=== PATIENT | female | born 1950 | race Native Hawaiian/Other Pacific Islander ===

== ENCOUNTER 2020-04-21 10:14 | Emergency (ER) | payer MEDICARE, OTHER, SELFPAY ==
[2020-04-21] VITALS (15 sets, daily range): BP systolic 146–179; BP diastolic 72–83; PULSE 59–72; RESP 13–37; TEMP 36.7; O2SAT 98–100
--- NOTE | 2020-04-21 10:49 | DI.CT.S_ITS ---
PROCEDURE: CT HEAD/BRAIN WO CON INDICATIONS: dizzy, ataxia x 4 days, no h/o trauma TECHNIQUE: Noncontrast 4.5 mm thick angled axial sections acquired from the foramen magnum to the vertex, with coronal and sagittal reformats. For radiation dose reduction, the following was used: automated exposure control, adjustment of mA and/or kV according to patient size. COMPARISON: None. FINDINGS: Image quality: Excellent. CSF spaces: Basal cisterns are patent. No extra-axial fluid collections. The ventricles are symmetric in size and shape. Brain: No intracranial bleeds or masses. There is mild cerebral volume loss for age, with resultant ventricular and sulcal prominence. There are moderate periventricular and deep white matter chronic small vessel ischemic changes. There is intracranial internal carotid artery atherosclerosis. Skull and face: Calvarium and visualized facial bones appear intact, without suspicious lesions. Sinuses: Visualized sinuses and mastoids are clear. IMPRESSION: 1. No acute intracranial abnormalities. 2. Mild cerebral volume loss and moderate chronic microvascular ischemic changes. 3. Please consider MRI for follow-up if clinical suspicion for posterior stroke is high. Dictated by: Bree Mcgee M.D. on 04/21/2020 at 11:09 Approved by: Bree Mcgee M.D. on 04/21/2020 at 11:16
[2020-04-21 11:44] LABS: Add Manual Diff / Slide Review NO; Basophils Absolute Auto 0 /uL (0-100); Basophils Percent Auto 0.7 % (0-2); Eosinophils Absolute Auto 100 /uL (0-450); Eosinophils Percent Auto 2.3 % (2-4); Hematocrit 45.3 % (36-46); Hemoglobin 15.1 g/dL (12.0-16.0); Lymphocytes Absolute Auto 1400 /uL (1100-4500); Lymphocytes Percent Auto 27.3 % (25-40); Mean Corpuscular HGB Conc 33.4 % (30-36); Mean Corpuscular Hemoglobin 30.4 PG (26-34); Monocytes Absolute Auto 500 /uL (0-900); Monocytes Percent Auto 8.8 % (3-14); Neutrophils Absolute Auto 3200 /uL (1500-7000); Neutrophils Percent Auto 60.9 % (50-75); Platelet Count 140 X10^3/uL (150-400); Red Blood Cell Count 4.98 X10^6/uL (4.0-5.2); Red Cell Distribution Width 13.6 % (11.6-14.8); White Blood Cell Count 5.2 X10^3/uL (4.5-11.0)
[2020-04-21 11:44] LABS: Bacteria Urine None Seen; RBC Urine None Seen (0-5/HPF); WBC Urine None Seen (0-5/HPF)
[2020-04-21 11:48] LABS: Appearance Urine UA CLEAR; Bilirubin Urine UA NEGATIVE (NEGATIVE); Glucose Urine UA 1+ g/dL (Negative); Ketones Urine UA NEGATIVE (NEGATIVE); Leukocyte Esterase Urine UA NEGATIVE (NEGATIVE); Nitrite Urine UA NEGATIVE (Negative); Occult Blood Urine UA NEGATIVE (Negative); Protein Urine UA NEGATIVE (Negative); Specific Gravity Urine UA <=1.005 (1.000-1.035); Urobilinogen Urine UA 0.2 E.U./dL (0.2)
[2020-04-21] MEDS: SODIUM CHLORIDE 0.9% 1,000 ML 1000 ML IV (11:49)
[2020-04-21 11:50] LABS: INR 0.9 (0.9-1.3); Prothrombin Time 10.7 SECONDS (10.1-12.7)
[2020-04-21 11:52] LABS: UR Morphine/Opiate cutoff 300 Negative (Negative); Ur Creatinine Normal (Normal); Ur Specific Gravity Normal (Normal); Urine Amphetamines Negative (Negative); Urine Barbiturates Negative (Negative); Urine Benzodiazepines Negative (Negative); Urine Cocaine Negative (Negative); Urine MDMA Negative (Negative); Urine Methadone Negative (Negative); Urine Methamphetamines Negative (Negative); Urine Oxycodone Negative (Negative); Urine Phencyclidine Negative (Negative); Urine Tetrahydrocannabinol Negative (Negative); Urine Tricyclic Antidepressant Negative (Negative); Urine pH Normal (Normal)
[2020-04-21 11:53] LABS: PTT Partial Thromboplastin Tim 28 SECONDS (26.4-36.2)
[2020-04-21 12:00] LABS: Alanine Aminotransferase 15 IU/L (<35); Albumin 4.3 g/dL (3.5-5.0); Albumin Globulin Ratio 1.3 (1.0-2.8); Alkaline Phosphatase 70 U/L (38-126); Aspartate Aminotransferase 29 IU/L (14-36); BUN Creatinine Ratio 29.8 (6-22); Bilirubin Total 0.4 mg/dL (0.2-1.3); Blood Urea Nitrogen 17 mg/dL (7-17); Calcium 9.6 mg/dL (8.4-10.2); Carbon Dioxide 28 mmol/L (22-32); Chloride 102 mmol/L (98-107); Creatine Kinase 43 U/L (30-135); Estimated Glomerular Filt Rate > 60.0 mL/min (>60); Globulin 3.2 g/dL (1.7-4.1); Glucose 281 mg/dL (80-110); HEMOLYSIS 18 (0-50); Potassium 4.3 mmol/L (3.4-5.1); Sodium 135 mmol/L (137-145); Total Protein 7.5 g/dL (6.3-8.2)
[2020-04-21 12:11] LABS: Troponin I < 0.012 ng/mL (0.01-0.034)
[2020-04-21 12:11] LABS: Color Urine UA Straw; pH Urine UA 6.5 (4.5-8.0)
[2020-04-21 12:20] LABS: Culture Indicated Urine Cult Not Indicated; Squamous Epithelial Cell Urine 0-1 /HPF (0-5/HPF); Urine Comments Microscopic Normal
[2020-04-21] MEDS: SODIUM CHLORIDE 0.9% 1,000 ML 150 ML IV (13:27)
[2020-04-21] MEDS: MECLIZINE HCL 12.5 MG TABLET 25 MG PO (13:30)
[2020-04-21] MEDS: ACETAMINOPHEN 325 MG TABLET 650 MG PO (13:56)
[2020-04-21] MEDS: methocarbamoL 500 MG TABLET PO (14:03)
--- NOTE | 2020-04-21 18:01 | ED_ITS ---
HPI - Dizziness <SARAY Hull - Last Filed: 04/21/20 18:21> General Chief Complaint: Dizziness Stated Complaint: vertigo/slight visual changes x4days Time Seen by Provider: 04/21/20 12:57 Source: patient and family Mode of arrival: Ambulatory Limitations: no limitations History of Present Illness HPI Narrative: This is a 70-year-old female, nonsmoker, who has past medical history significant for diabetes who is not currently taking medication and treating with diet presents to ED with chief complain of spining like sensation which increases with movement for last 4 days. Initial dizziness started when she woke up and turned her head to look up a clock 4 days ago. She states dizziness gets better after a few seconds after she stops moving her head. She denies chest pain, dyspnea, facial droops, aphasia, aphasia, paralysis, tingling or numbness to upper extremities as associated symptoms. Patient feels better when she is sitting up and she denies history of vertigo. Patient denies fever, chills, nausea and vomiting and has been normal state of health and denies r ecent URI symptoms or ear pain. Reports feeling dehydrated even though she drinks about 4 bottles of small water bottle per day. Patient also reports stiff neck and mild headache and slight blurred vision when she looks at her computer monitor and up which lasts for few seconds. Patient states she stop taking metformin in 08/2017 after taking this for many years. She has an appointment with her primary care physician at [facility] tomorrow. Related Data Previous Rx's Medication Instructions Recorded meclizine 25 mg PO BID PRN #10 tab 04/21/20 methocarbamol 500 mg PO Q8H PRN #7 tab 04/21/20 Allergies Allergy/AdvReac Type Severity Reaction Status Date / Time No Known Drug Allergies Allergy Verified 04/21/20 10:44 Review of Systems <SARAY Hull - Last Filed: 04/21/20 18:21> Review of Systems Narrative: General: Denies fever, chills, fatigue, malaise, sweats. HEENT: See HP a Respiratory: Denies dyspnea, cough, wheezing, hemoptysis, sputum. Cardiovascular: Denies chest pain, palpitations, orthopnea, edema. Gastrointestinal: Denies nausea, vomiting, abdominal pain, diarrhea, constipation, melena. : Denies dysuria, frequency, incontinence, hematuria, urinary retention. Musculoskeletal: Denies weakness, joint pain or bony pain. Skin: Denies rash, skin lesions, or other. Neurologic: HPI Psychiatric: No concerning psychosocial issues. 12-point review of systems is negative except for those stated above. Patient History <SARAY Hull - Last Filed: 04/21/20 18:21> Medical History (Updated 04/21/20 @ 18:08 by SARAY Hull) Diabetes mellitus Social History Smoking Status: Never smoker Smoking Status: Never smoker alcohol intake frequency: 0-2 drinks per day Substance Use Type: does not use Exam <SARAY Hull - Last Filed: 04/21/20 18:21> Narrative Exam Narrative: GEN: Alert, oriented x 3, thin appearing and in no acute distress. Head: Normal cephalic, atraumatic. No scalp or temporal tenderness, palpable mass or rash. EYES: Pupils are equal, round, and reactive to light and accommodation. Extraocular muscles are intact bilaterally. There is no subconjunctival hemorrhage, exudate and sclera non-icteric. No vertical nystagmus appreciated. ENT: Bilateral auditory canals and tympanic membranes clear. Hearing grossly intact. Nose without bleeding, purulent discharge, septal hematoma or deviation. Turbinate without erythema or swelling. Facial sinuses nontender to palpate. Mucous membrane moist, no mucosal lesion. Throat without erythema, tonsillar hypertrophy or exudate. Uvula in midline, airway patent. Neck: Trachea in midline. No JVD, non-tender without lymphadenopathy. No masses or thyroid megaly. Supple and no meningeal signs. Mild tenderness to palpate in bilateral neck. CARDIAC: Normal regular rate and rhythm without murmurs, gallops, or rubs. No chest wall tenderness. No peripheral edema, cyanosis or pallor. Capillary refill is less than 2 seconds. No carotid bruits. RESPIRATORY: Lungs are cleat to auscultate bilaterally. No cough, wheezes, rales, or rhonchi. No stridor, respiratory distress, increase work of breathing, or accessary muscle used. ABD: Abdomen soft, nontender and non-distended. No guarding or rebound tenderness to palpate. Bowel sounds are normal in all 4 quadrants. There is no palpable masses or organomegaly. EXT: Full painless ROM of all extremities with no loss of sensation, strength, effusion or edema. SKIN: Warm, dry, normal color for patient. No erythema, lesions or rash. BACK: Nontender without deformity or crepitance. No flank tenderness. NEUROLOGICAL: Alert and oriented to place, time and person. No facial droops, dysphasia. CN II-XII intact. Strength and sensation symmetric and intact throughout. Cerebellar testing normal. PSYCHIATRIC: Good judgement and reason, without hallucinations, abnormal affect or abnormal behaviors during the examination. Patient is not suicidal. Initial Vital Signs Initial Vital Signs: Vital Signs Temperature 98.1 F 04/21/20 10:41 Pulse Rate 72 04/21/20 10:41 Respiratory Rate 16 04/21/20 10:41 Blood Pressure 158/82 H 04/21/20 10:41 Pulse Oximetry 98 04/21/20 10:41 <Carole Shine DO - Last Filed: 04/22/20 10:30> Initial Vital Signs Initial Vital Signs: Vital Signs Temperature 98.1 F 04/21/20 10:41 Pulse Rate 72 04/21/20 10:41 Respiratory Rate 16 04/21/20 10:41 Blood Pressure 158/82 H 04/21/20 10:41 Pulse Oximetry 98 04/21/20 10:41 Scores <SARAY Hull - Last Filed: 04/21/20 18:21> GCS Sam coma scale eye opening: Spontaneous [place] coma scale verbal response: Orientated Sam coma scale motor response: Obey commands [place] coma scale total score: 15 NIH Stroke Scale Level of Conciousness: Alert, keenly responsive Ask month/age: Answers both questions correctly. Open/close eyes, close hand: Performs both tasks correctly Best gaze horizontal: Normal Visual osuna: No visual loss Facial palsy: Normal symetrical movement Left arm drift: No drift for full 10 sec Right arm drift: No drift for full 10 sec Left leg drift: No drift for full 5 sec Right leg drift: No drift for full 5 sec Limb ataxia: Absent Sensory on face/arms/legs: Normal, no sensory loss Best language: No aphasia, normal Dysarthria: Normal Extinction or inattention: No abnormality Total NIH Stroke scale score: 0 Course <SARAY Hull - Last Filed: 04/21/20 18:21> Orders Ordered: Discontinued Medications Acetaminophen (Acetaminophen 325 Mg Tablet) 650 mg PO NOW ONE Stop: 04/21/20 13:50 Last Admin: 04/21/20 13:56 Dose: 650 mg Documented by: RONAL Sodium Chloride (Normal Saline 0.9%) 1,000 mls @ 150 mls/hr IV CONT JUAN Last Admin: 04/21/20 13:27 Dose: 150 mls/hr Documented by: RONAL Sodium Chloride (Normal Saline 0.9%) 1,000 mls @ 1,000 mls/hr IV BOLUS ONE Stop: 04/21/20 11:51 Last Infusion: 04/21/20 13:10 Dose: 0 mls/hr Documented by: Admin: 04/21/20 11:49 Dose: 1,000 mls/hr Documented by: RONAL Sodium Chloride (Normal Saline 0.9%) 500 mls @ 1,000 mls/hr IV BOLUS ONE Stop: 04/21/20 13:57 Last Admin: 04/21/20 14:05 Dose: Not Given Documented by: RONAL Meclizine HCl (Meclizine Hcl 12.5 Mg Tablet) 25 mg PO NOW ONE Stop: 04/21/20 13:25 Last Admin: 04/21/20 13:30 Dose: 25 mg Documented by: RONAL Methocarbamol (Methocarbamol 500 Mg Tablet) 500 mg PO NOW ONE Stop: 04/21/20 13:50 Last Admin: 04/21/20 14:03 Dose: 500 mg Documented by: RONAL Vital Signs Vital signs: Vital Signs - 8 hr 04/21/20 10:41 04/21/20 10:53 04/21/20 11:00 Temperature 98.1 F Pulse Rate 72 68 71 Pulse Rate [Orthostatic Lying] Pulse Rate [Orthostatic Sitting] Pulse Rate [Orthostatic Standing] Respiratory Rate 16 37 H 29 H Blood Pressure 158/82 H 159/81 H Blood Pressure [Orthostatic Lying] Blood Pressure [Orthostatic Sitting] Blood Pressure [Orthostatic Standing] Pulse Oximetry 98 98 99 04/21/20 11:48 04/21/20 12:00 04/21/20 12:27 Temperature Pulse Rate 64 63 62 Pulse Rate [Orthostatic Lying] Pulse Rate [Orthostatic Sitting] Pulse Rate [Orthostatic Standing] Respiratory Rate 15 21 Blood Pressure 148/75 H 146/72 H 161/78 H Blood Pressure [Orthostatic Lying] Blood Pressure [Orthostatic Sitting] Blood Pressure [Orthostatic Standing] Pulse Oximetry 99 100 100 04/21/20 12:30 04/21/20 12:37 04/21/20 12:40 Temperature Pulse Rate 61 61 62 Pulse Rate [Orthostatic Lying] Pulse Rate [Orthostatic Sitting] Pulse Rate [Orthostatic Standing] Respiratory Rate 17 19 21 Blood Pressure 161/80 H 155/76 H 164/77 H Blood Pressure [Orthostatic Lying] Blood Pressure [Orthostatic Sitting] Blood Pressure [Orthostatic Standing] Pulse Oximetry 100 100 100 04/21/20 12:42 04/21/20 13:00 04/21/20 13:33 Temperature Pulse Rate 62 Pulse Rate [Orthostatic Lying] 61 Pulse Rate [Orthostatic Sitting] 59 L Pulse Rate [Orthostatic Standing] 60 Respiratory Rate 16 Blood Pressure 176/81 H Blood Pressure [Orthostatic Lying] 161/80 H Blood Pressure [Orthostatic Sitting] 155/76 H Blood Pressure [Orthostatic Standing] 164/77 H Pulse Oximetry 99 99 04/21/20 13:35 04/21/20 14:00 04/21/20 14:30 Temperature Pulse Rate 69 68 63 Pulse Rate [Orthostatic Lying] Pulse Rate [Orthostatic Sitting] Pulse Rate [Orthostatic Standing] Respiratory Rate 13 18 18 Blood Pressure 179/83 H 164/77 H 166/79 H Blood Pressure [Orthostatic Lying] Blood Pressure [Orthostatic Sitting] Blood Pressure [Orthostatic Standing] Pulse Oximetry 100 98 98 <Carole Shine, - Last Filed: 04/22/20 10:30> Orders Ordered: Discontinued Medications Acetaminophen (Acetaminophen 325 Mg Tablet) 650 mg PO NOW ONE Stop: 04/21/20 13:50 Last Admin: 04/21/20 13:56 Dose: 650 mg Documented by: SMICHEAU Sodium Chloride (Normal Saline 0.9%) 1,000 mls @ 150 mls/hr IV CONT JUAN Last Admin: 04/21/20 13:27 Dose: 150 mls/hr Documented by: SMICHEAU Sodium Chloride (Normal Saline 0.9%) 1,000 mls @ 1,000 mls/hr IV BOLUS ONE Stop: 04/21/20 11:51 Last Infusion: 04/21/20 13:10 Dose: 0 mls/hr Documented by: Admin: 04/21/20 11:49 Dose: 1,000 mls/hr Documented by: RONAL Sodium Chloride (Normal Saline 0.9%) 500 mls @ 1,000 mls/hr IV BOLUS ONE Stop: 04/21/20 13:57 Last Admin: 04/21/20 14:05 Dose: Not Given Documented by: RONAL Meclizine HCl (Meclizine Hcl 12.5 Mg Tablet) 25 mg PO NOW ONE Stop: 04/21/20 13:25 Last Admin: 04/21/20 13:30 Dose: 25 mg Documented by: RONAL Methocarbamol (Methocarbamol 500 Mg Tablet) 500 mg PO NOW ONE Stop: 04/21/20 13:50 Last Admin: 04/21/20 14:03 Dose: 500 mg Documented by: RONAL Vital Signs Vital signs: Vital Signs - 8 hr 04/21/20 10:41 04/21/20 10:53 04/21/20 11:00 Temperature 98.1 F Pulse Rate 72 68 71 Pulse Rate [Orthostatic Lying] Pulse Rate [Orthostatic Sitting] Pulse Rate [Orthostatic Standing] Respiratory Rate 16 37 H 29 H Blood Pressure 158/82 H 159/81 H Blood Pressure [Orthostatic Lying] Blood Pressure [Orthostatic Sitting] Blood Pressure [Orthostatic Standing] Pulse Oximetry 98 98 99 04/21/20 11:48 04/21/20 12:00 04/21/20 12:27 Temperature Pulse Rate 64 63 62 Pulse Rate [Orthostatic Lying] Pulse Rate [Orthostatic Sitting] Pulse Rate [Orthostatic Standing] Respiratory Rate 15 21 Blood Pressure 148/75 H 146/72 H 161/78 H Blood Pressure [Orthostatic Lying] Blood Pressure [Orthostatic Sitting] Blood Pressure [Orthostatic Standing] Pulse Oximetry 99 100 100 04/21/20 12:30 04/21/20 12:37 04/21/20 12:40 Temperature Pulse Rate 61 61 62 Pulse Rate [Orthostatic Lying] Pulse Rate [Orthostatic Sitting] Pulse Rate [Orthostatic Standing] Respiratory Rate 17 19 21 Blood Pressure 161/80 H 155/76 H 164/77 H Blood Pressure [Orthostatic Lying] Blood Pressure [Orthostatic Sitting] Blood Pressure [Orthostatic Standing] Pulse Oximetry 100 100 100 04/21/20 12:42 04/21/20 13:00 04/21/20 13:33 Temperature Pulse Rate 62 Pulse Rate [Orthostatic Lying] 61 Pulse Rate [Orthostatic Sitting] 59 L Pulse Rate [Orthostatic Standing] 60 Respiratory Rate 16 Blood Pressure 176/81 H Blood Pressure [Orthostatic Lying] 161/80 H Blood Pressure [Orthostatic Sitting] 155/76 H Blood Pressure [Orthostatic Standing] 164/77 H Pulse Oximetry 99 99 04/21/20 13:35 04/21/20 14:00 04/21/20 14:30 Temperature Pulse Rate 69 68 63 Pulse Rate [Orthostatic Lying] Pulse Rate [Orthostatic Sitting] Pulse Rate [Orthostatic Standing] Respiratory Rate 13 18 18 Blood Pressure 179/83 H 164/77 H 166/79 H Blood Pressure [Orthostatic Lying] Blood Pressure [Orthostatic Sitting] Blood Pressure [Orthostatic Standing] Pulse Oximetry 100 98 98 MDM - Dizziness <Minesh SARAY Lerner - Last Filed: 04/21/20 18:21> Differential Diagnosis Differential diagnosis: Likely benign paroxysmal positional vertigo, orthostatic hypotension, vertebral basilar insufficiency and cerebrovascular accident Medical Records Attestation: I reviewed the patient's medical records. Lab Data Attestation: I reviewed the patient's lab results. Result diagrams: 04/21/20 11:30 04/21/20 11:30 Labs: Lab Results 04/21/20 04/21/20 04/21/20 Range/Units 11:20 11:20 11:30 WBC 5.2 (4.5-11.0) X10^3/uL RBC 4.98 (4.0-5.2) X10^6/uL Hgb 15.1 (12.0-16.0) g/dL Hct 45.3 (36-46) % MCV 91.0 (80-100) fL MCH 30.4 (26-34) PG MCHC 33.4 (30-36) % RDW 13.6 (11.6-14.8) % Plt Count 140 L (150-400) X10^3/uL Neut % (Auto) 60.9 (50-75) % Lymph % (Auto) 27.3 (25-40) % Bryan % (Auto) 8.8 (3-14) % Eos % (Auto) 2.3 (2-4) % Baso % (Auto) 0.7 (0-2) % Neut # (Auto) 3200 (1027-8245) /uL Lymph # (Auto) 1400 (5729-1762) /uL Bryan # (Auto) 500 (0-900) /uL Eos # (Auto) 100 (0-450) /uL Baso # (Auto) 0 (0-100) /uL PT (10.1-12.7) SECONDS INR (0.9-1.3) APTT (26.4-36.2) SECONDS Sodium (137-145) mmol/L Potassium (3.4-5.1) mmol/L Chloride (98-107) mmol/L Carbon Dioxide (22-32) mmol/L BUN (7-17) mg/dL Creatinine (0.52-1.04) mg/dL Estimated GFR (>60) mL/min BUN/Creatinine Ratio (6-22) Glucose (80-110) mg/dL Calcium (8.4-10.2) mg/dL Total Bilirubin (0.2-1.3) mg/dL AST (14-36) IU/L ALT (<35) IU/L Alkaline Phosphatase (38-126) U/L Total Creatine Kinase (30-135) U/L CK-MB (CK-2) CK-MB (CK-2) Rel Index Troponin I (0.01-0.034) ng/mL Total Protein (6.3-8.2) g/dL Albumin (3.5-5.0) g/dL Globulin (1.7-4.1) g/dL Albumin/Globulin Ratio (1.0-2.8) Urine Color Straw Urine Appearance Clear Urine pH 6.5 (4.5-8.0) Ur Specific [place] <=1.005 (1.000-1.035) Urine Protein Negative (Negative) Urine Glucose (UA) 1+ H (Negative) g/dL Urine Ketones Negative (NEGATIVE) Urine Occult Blood Negative (Negative) Urine Nitrate Negative (Negative) Urine Bilirubin Negative (NEGATIVE) Urine Urobilinogen 0.2 (0.2) E.U./dL Ur Leukocyte Esterase Negative (NEGATIVE) Urine RBC None seen (0-5/HPF) Urine WBC None seen (0-5/HPF) Ur Squamous Epith Cells 0-1 /hpf (0-5/HPF) Urine Bacteria None seen (None) Ur Culture Indicated? Cult not indicated Micro UA Comment Microscopic normal U Opiates 300ng/mL cut Negative (Negative) Ur Oxycodone Screen Negative (Negative) Urine Methadone Screen Negative (Negative) Ur Barbiturates Screen Negative (Negative) U Tricyclic Antidepress Negative (Negative) Ur Phencyclidine Scrn Negative (Negative) Ur Amphetamines Screen Negative (Negative) U Methamphetamines Scrn Negative (Negative) Ur MDMA Scrn (Ecstasy) Negative (Negative) U Benzodiazepines Scrn Negative (Negative) Urine Cocaine Screen Negative (Negative) U Marijuana (THC) Screen Negative (Negative) 04/21/20 04/21/20 Range/Units 11:30 11:30 WBC (4.5-11.0) X10^3/uL RBC (4.0-5.2) X10^6/uL Hgb (12.0-16.0) g/dL Hct (36-46) % MCV (80-100) fL MCH (26-34) PG MCHC (30-36) % RDW (11.6-14.8) % Plt Count (150-400) X10^3/uL Neut % (Auto) (50-75) % Lymph % (Auto) (25-40) % Bryan % (Auto) (3-14) % Eos % (Auto) (2-4) % Baso % (Auto) (0-2) % Neut # (Auto) (1458-9541) /uL Lymph # (Auto) (8751-6621) /uL Bryan # (Auto) (0-900) /uL Eos # (Auto) (0-450) /uL Baso # (Auto) (0-100) /uL PT 10.7 (10.1-12.7) SECONDS INR 0.9 (0.9-1.3) APTT 28 (26.4-36.2) SECONDS Sodium 135 L (137-145) mmol/L Potassium 4.3 (3.4-5.1) mmol/L Chloride 102 (98-107) mmol/L Carbon Dioxide 28 (22-32) mmol/L BUN 17 (7-17) mg/dL Creatinine 0.57 (0.52-1.04) mg/dL Estimated GFR > 60.0 (>60) mL/min BUN/Creatinine Ratio 29.8 H (6-22) Glucose 281 H (80-110) mg/dL Calcium 9.6 (8.4-10.2) mg/dL Total Bilirubin 0.4 (0.2-1.3) mg/dL AST 29 (14-36) IU/L ALT 15 (<35) IU/L Alkaline Phosphatase 70 (38-126) U/L Total Creatine Kinase 43 (30-135) U/L CK-MB (CK-2) TNP CK-MB (CK-2) Rel Index TNP Troponin I < 0.012 (0.01-0.034) ng/mL Total Protein 7.5 (6.3-8.2) g/dL Albumin 4.3 (3.5-5.0) g/dL Globulin 3.2 (1.7-4.1) g/dL Albumin/Globulin Ratio 1.3 (1.0-2.8) Urine Color Urine Appearance Urine pH (4.5-8.0) Ur Specific [place] (1.000-1.035) Urine Protein (Negative) Urine Glucose (UA) (Negative) g/dL Urine Ketones (NEGATIVE) Urine Occult Blood (Negative) Urine Nitrate (Negative) Urine Bilirubin (NEGATIVE) Urine Urobilinogen (0.2) E.U./dL Ur Leukocyte Esterase (NEGATIVE) Urine RBC (0-5/HPF) Urine WBC (0-5/HPF) Ur Squamous Epith Cells (0-5/HPF) Urine Bacteria (None) Ur Culture Indicated? Micro UA Comment U Opiates 300ng/mL cut (Negative) Ur Oxycodone Screen (Negative) Urine Methadone Screen (Negative) Ur Barbiturates Screen (Negative) U Tricyclic Antidepress (Negative) Ur Phencyclidine Scrn (Negative) Ur Amphetamines Screen (Negative) U Methamphetamines Scrn (Negative) Ur MDMA Scrn (Ecstasy) (Negative) U Benzodiazepines Scrn (Negative) Urine Cocaine Screen (Negative) U Marijuana (THC) Screen (Negative) Urine Dip Bedside Urine Glucose Negative Bedside Urine Bilirubin - Negative Bedside Urine Ketone - Negative Urine Specific [place] 1.010 Bedside Urine Occult Blood - Negative Bedside Urine pH 6.0 Bedside Urine Protein - Negative Bedside Urine Urobilinogen - Negative Bedside Urine Nitrite - Negative Bedside Urine Leukocytes - Negative Esterase Imaging Data CT scan - head: Radiologist's Impression: [address] [id number] Scan ReportSigned Patient: Maritza Jones TMR#: [id number]: 1950Acct:[id number]/Sex: 70 / FDate of Service: 04/21/20Loc: EDAccession Number: [id number] Procedure: CT head/brain wo con Ordering Provider: Carole Shine D.O. PROCEDURE: CT HEAD/BRAIN WO CON INDICATIONS: dizzy, ataxia x 4 days, no h/o trauma TECHNIQUE: Noncontrast 4.5 mm thick angled axial sections acquired from the foramen magnum to the vertex, with coronal and sagittal reformats. For radiation dose reduction, the following was used: automated exposure control, adjustment of mA and/or kV according to patient size. COMPARISON: None. FINDINGS: Image quality: Excellent. CSF spaces: Basal cisterns are patent. No extra-axial fluid collections. The ventricles are symmetric in size and shape. Brain: No intracranial bleeds or masses. There is mild cerebral volume loss for age, with resultant ventricular and sulcal prominence. There are moderate periventricular and deep white matter chronic small vessel ischemic changes. There is intracranial internal carotid artery atherosclerosis. Skull and face: Calvarium and visualized facial bones appear intact, without barakat spicious lesions. Sinuses: Visualized sinuses and mastoids are clear. IMPRESSION: 1. No acute intracranial abnormalities. 2. Mild cerebral volume loss and moderate chronic microvascular ischemic changes. 3. Please consider MRI for follow-up if clinical suspicion for posterior stroke is high. ECG Data Attestation: I personally reviewed and interpreted this ECG as follows: Prior ECG tracings: not available for review Interpretation: Normal sinus rhythm with a right bundle branch block rate at 63. Normal axis GA interval 156, QRS duration 134, QT/QTc 422/[address] changes MDM Narrative Medical decision making narrative: Of 281. This is a 70 year female who presents to ED with spinning sensation that started 4 days ago when she turned her head to look up of o'clock when she woke up which worsens with movement of her head. NHISS score is 0 and no focal neuro deficit appreciated. She denies chest pain, dyspnea, nausea, vomiting or other associated cardiac symptoms. No recent URI symptoms. EKG shows normal sinus rhythm with right bundle-branch block without acute ST changes. Labs are unremarkable except elevated serum glucose of 281. Patient states she has been hydrating well still feels dehydrated. BUN/creatinine ratio is 29.8 and patient was treated with 1 L of normal saline in ED. Normal kidney function test. Liver function test. Cardiac enzymes are negative. Urine test negative for infection. UDS is negative. H&H within normal of 15.1/45.[address] without Acute intracranial abnormalities. There is mild cerebral volume loss and moderate chronic microvascular ischemic changes. Patient's history and symptoms likely from vertigo. Patient provided with meclizine for dizziness, Tylenol and methocarbamol for neck muscle tightness and headache and she feels improved. She was able to ambulate in stable gait in ED before discharged to home. Return precautions discussed with patient such as worsening dizziness, signs and symptoms like stroke and patient advised to follow-up with primary care physician for further workup as needed with advanced imaging test to rule out posterior stroke if her symptoms are persistent and she and her verbalized understanding. Patient recommended to follow up with primary care physician for elevated serum glucose that she is likely require medication treatment. <Carole Shine, DO - Last Filed: 04/22/20 10:30> Lab Data Labs: Lab Results 04/21/20 04/21/20 04/21/20 Range/Units 11:20 11:20 11:30 WBC 5.2 (4.5-11.0) X10^3/uL RBC 4.98 (4.0-5.2) X10^6/uL Hgb 15.1 (12.0-16.0) g/dL Hct 45.3 (36-46) % MCV 91.0 (80-100) fL MCH 30.4 (26-34) PG MCHC 33.4 (30-36) % RDW 13.6 (11.6-14.8) % Plt Count 140 L (150-400) X10^3/uL Neut % (Auto) 60.9 (50-75) % Lymph % (Auto) 27.3 (25-40) % Bryan % (Auto) 8.8 (3-14) % Eos % (Auto) 2.3 (2-4) % Baso % (Auto) 0.7 (0-2) % Neut # (Auto) 3200 (4592-8339) /uL Lymph # (Auto) 1400 (9245-7513) /uL Bryan # (Auto) 500 (0-900) /uL Eos # (Auto) 100 (0-450) /uL Baso # (Auto) 0 (0-100) /uL PT (10.1-12.7) SECONDS INR (0.9-1.3) APTT (26.4-36.2) SECONDS Sodium (137-145) mmol/L Potassium (3.4-5.1) mmol/L Chloride (98-107) mmol/L Carbon Dioxide (22-32) mmol/L BUN (7-17) mg/dL Creatinine (0.52-1.04) mg/dL Estimated GFR (>60) mL/min BUN/Creatinine Ratio (6-22) Glucose (80-110) mg/dL Calcium (8.4-10.2) mg/dL Total Bilirubin (0.2-1.3) mg/dL AST (14-36) IU/L ALT (<35) IU/L Alkaline Phosphatase (38-126) U/L Total Creatine Kinase (30-135) U/L CK-MB (CK-2) CK-MB (CK-2) Rel Index Troponin I (0.01-0.034) ng/mL Total Protein (6.3-8.2) g/dL Albumin (3.5-5.0) g/dL Globulin (1.7-4.1) g/dL Albumin/Globulin Ratio (1.0-2.8) Urine Color Straw Urine Appearance Clear Urine pH 6.5 (4.5-8.0) Ur Specific [place] <=1.005 (1.000-1.035) Urine Protein Negative (Negative) Urine Glucose (UA) 1+ H (Negative) g/dL Urine Ketones Negative (NEGATIVE) Urine Occult Blood Negative (Negative) Urine Nitrate Negative (Negative) Urine Bilirubin Negative (NEGATIVE) Urine Urobilinogen 0.2 (0.2) E.U./dL Ur Leukocyte Esterase Negative (NEGATIVE) Urine RBC None seen (0-5/HPF) Urine WBC None seen (0-5/HPF) Ur Squamous Epith Cells 0-1 /hpf (0-5/HPF) Urine Bacteria None seen (None) Ur Culture Indicated? Cult not indicated Micro UA Comment Microscopic normal U Opiates 300ng/mL cut Negative (Negative) Ur Oxycodone Screen Negative (Negative) Urine Methadone Screen Negative (Negative) Ur Barbiturates Screen Negative (Negative) U Tricyclic Antidepress Negative (Negative) Ur Phencyclidine Scrn Negative (Negative) Ur Amphetamines Screen Negative (Negative) U Methamphetamines Scrn Negative (Negative) Ur MDMA Scrn (Ecstasy) Negative (Negative) U Benzodiazepines Scrn Negative (Negative) Urine Cocaine Screen Negative (Negative) U Marijuana (THC) Screen Negative (Negative) 04/21/20 04/21/20 Range/Units 11:30 11:30 WBC (4.5-11.0) X10^3/uL RBC (4.0-5.2) X10^6/uL Hgb (12.0-16.0) g/dL Hct (36-46) % MCV (80-100) fL MCH (26-34) PG MCHC (30-36) % RDW (11.6-14.8) % Plt Count (150-400) X10^3/uL Neut % (Auto) (50-75) % Lymph % (Auto) (25-40) % Bryan % (Auto) (3-14) % Eos % (Auto) (2-4) % Baso % (Auto) (0-2) % Neut # (Auto) (4561-7032) /uL Lymph # (Auto) (8103-1190) /uL Bryan # (Auto) (0-900) /uL Eos # (Auto) (0-450) /uL Baso # (Auto) (0-100) /uL PT 10.7 (10.1-12.7) SECONDS INR 0.9 (0.9-1.3) APTT 28 (26.4-36.2) SECONDS Sodium 135 L (137-145) mmol/L Potassium 4.3 (3.4-5.1) mmol/L Chloride 102 (98-107) mmol/L Carbon Dioxide 28 (22-32) mmol/L BUN 17 (7-17) mg/dL Creatinine 0.57 (0.52-1.04) mg/dL Estimated GFR > 60.0 (>60) mL/min BUN/Creatinine Ratio 29.8 H (6-22) Glucose 281 H (80-110) mg/dL Calcium 9.6 (8.4-10.2) mg/dL Total Bilirubin 0.4 (0.2-1.3) mg/dL AST 29 (14-36) IU/L ALT 15 (<35) IU/L Alkaline Phosphatase 70 (38-126) U/L Total Creatine Kinase 43 (30-135) U/L CK-MB (CK-2) TNP CK-MB (CK-2) Rel Index TNP Troponin I < 0.012 (0.01-0.034) ng/mL Total Protein 7.5 (6.3-8.2) g/dL Albumin 4.3 (3.5-5.0) g/dL Globulin 3.2 (1.7-4.1) g/dL Albumin/Globulin Ratio 1.3 (1.0-2.8) Urine Color Urine Appearance Urine pH (4.5-8.0) Ur Specific [place] (1.000-1.035) Urine Protein (Negative) Urine Glucose (UA) (Negative) g/dL Urine Ketones (NEGATIVE) Urine Occult Blood (Negative) Urine Nitrate (Negative) Urine Bilirubin (NEGATIVE) Urine Urobilinogen (0.2) E.U./dL Ur Leukocyte Esterase (NEGATIVE) Urine RBC (0-5/HPF) Urine WBC (0-5/HPF) Ur Squamous Epith Cells (0-5/HPF) Urine Bacteria (None) Ur Culture Indicated? Micro UA Comment U Opiates 300ng/mL cut (Negative) Ur Oxycodone Screen (Negative) Urine Methadone Screen (Negative) Ur Barbiturates Screen (Negative) U Tricyclic Antidepress (Negative) Ur Phencyclidine Scrn (Negative) Ur Amphetamines Screen (Negative) U Methamphetamines Scrn (Negative) Ur MDMA Scrn (Ecstasy) (Negative) U Benzodiazepines Scrn (Negative) Urine Cocaine Screen (Negative) U Marijuana (THC) Screen (Negative) Urine Dip Bedside Urine Glucose Negative Bedside Urine Bilirubin - Negative Bedside Urine Ketone - Negative Urine Specific [place] 1.010 Bedside Urine Occult Blood - Negative Bedside Urine pH 6.0 Bedside Urine Protein - Negative Bedside Urine Urobilinogen - Negative Bedside Urine Nitrite - Negative Bedside Urine Leukocytes - Negative Esterase Discharge Plan Departure Patient Disposition: Home Clinical Impression: Vertigo, Hyperglycemia Cervical strain Qualifiers: Encounter type: initial encounter Qualified Code(s): S16.1XXA - Strain of muscle, fascia and tendon at neck level, initial encounter Instructions: DI for Vertigo, DI for Cervical Muscle Strain, DI for Hyperglycemia -- Adult Activity Restrictions/Additional Instructions: You have been diagnosed with [dizziness likely vertigo. Cardiac enzymes, head CT, labs are assuring except elevated blood glucose of 281 mg/dL]. What to do: *Take your medications as directed. You can use meclizine as needed dizziness, spinning sensation. You can use methocarbamol for neck muscle tightness as needed. These to medication can cause drowsiness so please take precaution not driving, drinking alcohol, or operating heavy equipments. You can take Tylenol as needed for discomfort. This medication have been transmitted to [facility]. *Follow up with your primary care provider in 2-3 days, call for an appointment. Let them know you were seen in the ED and that we asked you to be seen in follow up. *Return to ED if you have any new, worsening, or concerning symptoms, such as [chest pain, breathing difficulty, unable to tolerate fluids, signs and symptoms for stroke such as speech difficulty, facial droops, weakness to extremities, severe headache, or double vision, fever or any acute concerns.]. Prescriptions: New meclizine 25 mg tablet 25 mg PO BID PRN (Reason: dizziness) Qty: 10 RF: 0 methocarbamol 500 mg tablet 500 mg PO Q8H PRN (Reason: muscle spasm) Qty: 7 RF: 0 Referrals: Niyah Stewart MD [Primary Care Provider] - <Carole Shine DO - Last Filed: 04/22/20 10:30> Cosign ED Attending Julesature Attestation: I was immediately available in the department for consultation. Documentation has been reviewed. Agree with plan.
--- NOTE | 2020-06-01 15:21 | PC.NURSE ---
Late entry: IV NS 1000 mL bolus started at 1149 infused at 1249 hrs.
== END 2020-04-21 15:04 | disposition home or self-care (01) ==
PROVIDERS: Emergency Medicine; Emergency Provider Nurse Practitioner Family; PCP Internal Medicine
DX: R42 Dizziness and giddiness (principal); E11.65 Type 2 diabetes mellitus with hyperglycemia; S16.1XXA Strain of muscle, fascia and tendon at neck level, initial encounter; M54.2 Cervicalgia; R51.9 Headache, unspecified; H53.8 Other visual disturbances; G11.9 Hereditary ataxia, unspecified
CPT/HCPCS: 36415; 70450; 80053; 80305; 81001; 81003; 82550; 84484; 85025; 85610; 85730; 93005; 93010; 96360; 99283; 99284

== ENCOUNTER → 2022-05-19 07:28 | Outpatient (CLI) | payer MEDICARE, OTHER, SELFPAY ==
--- NOTE | 2022-05-19 | DI.NM.S_ITS ---
PROCEDURE: NM EXERCISE TREADMILL NON NUC COMPARISON: None. INDICATIONS: Chest Pain FINDINGS: Rest ECG sinus rhythm, RBBB. Yung protocol 6:23, maximum heart rate 132 bpm (90% peak predicted), maximum blood pressure 180/78, 7.0 METS, LOGAN -15%. Stress ECG sinus tachycardia, no ST segment changes or arrhythmia. The patient complained of 4 out of 10 substernal chest pain with exercise that resolved several minutes into recovery. IMPRESSION: Low to intermediate risk study. No evidence of exercise-induced ischemia on ECG. The patient did experience substernal exertional chest pain throughout exercise that resolved in recovery. Normal hemodynamic response. Good exercise capacity. Consider repeat exercise stress testing with associated imaging such as echocardiography or nuclear perfusion. Dictated by: Jacquelyn Fernandez D.O. on 05/19/2022 at 16:49 Approved by: Jacquelyn Fernandez D.O. on 05/19/2022 at 16:53
== END ==
PROVIDERS: PCP Internal Medicine; Referring Provider Family Medicine; Visit Provider Family Medicine
DX: R07.9 Chest pain, unspecified (principal)
CPT/HCPCS: 93017

== ENCOUNTER 2022-09-30 15:05 | Emergency (ER) | payer MEDICARE, OTHER, SELFPAY ==
[2022-09-30] VITALS (17 sets, daily range): BP systolic 133–181; BP diastolic 71–89; PULSE 57–82; RESP 14–31; TEMP 36.5; O2SAT 97–100; BMI 19.1
--- NOTE | 2022-09-30 15:38 | DI.RAD.S_ITS ---
PROCEDURE: XR CHEST 1V INDICATIONS: chest pain TECHNIQUE: One view of the chest was acquired. COMPARISON: None. FINDINGS: Surgical changes and devices: None. Lungs and pleura: Lungs are clear. No pleural effusions or pneumothorax. Mediastinum: Mediastinal contours appear normal. Heart size is normal. Bones and chest wall: No suspicious bony lesions. Overlying soft tissues appear unremarkable. IMPRESSION: No acute cardiopulmonary pathology. Dictated by: Trent Ivy M.D. on 09/30/2022 at 15:59 Approved by: Trent Ivy M.D. on 09/30/2022 at 16:00
[2022-09-30 15:54] LABS: Add Manual Diff / Slide Review NO; Basophils Absolute Auto 0 /uL (0-100); Basophils Percent Auto 0.8 % (0-2); Eosinophils Absolute Auto 200 /uL (0-450); Eosinophils Percent Auto 3.3 % (2-4); Hematocrit 42.8 % (36-46); Hemoglobin 14.4 g/dL (12.0-16.0); Lymphocytes Absolute Auto 1600 /uL (1100-4500); Lymphocytes Percent Auto 26.9 % (25-40); Mean Corpuscular HGB Conc 33.7 % (30-36); Mean Corpuscular Hemoglobin 30.6 PG (26-34); Mean Corpuscular Volume 90.9 fL (80-100); Monocytes Absolute Auto 500 /uL (0-900); Neutrophils Absolute Auto 3700 /uL (1500-7000); Platelet Count 166 X10^3/uL (150-400); Red Blood Cell Count 4.71 X10^6/uL (4.0-5.2); Red Cell Distribution Width 13.4 % (11.6-14.8); White Blood Cell Count 6.1 X10^3/uL (4.5-11.0)
[2022-09-30 16:00] LABS: INR 0.9 (0.9-1.3); Prothrombin Time 10.4 SECONDS (10.1-12.7)
[2022-09-30 16:02] LABS: PTT Partial Thromboplastin Tim 30 SECONDS (26-36)
[2022-09-30 16:04] LABS: Alanine Aminotransferase 17 IU/L (<35); Albumin 4.5 g/dL (3.5-5.0); Albumin Globulin Ratio 1.3 (1.0-2.8); Alkaline Phosphatase 56 U/L (38-126); Aspartate Aminotransferase 29 IU/L (14-36); BUN Creatinine Ratio 41.9 (6-22); Bilirubin Total 0.3 mg/dL (0.2-1.3); Blood Urea Nitrogen 18 mg/dL (7-17); Calcium 9.1 mg/dL (8.4-10.2); Carbon Dioxide 25 mmol/L (22-32); Chloride 102 mmol/L (98-107); Creatine Kinase 89 U/L (30-135); Estimated Glomerular Filt Rate > 60 mL/min (>60); Globulin 3.4 g/dL (1.7-4.1); Glucose 259 mg/dL (80-110); HEMOLYSIS 29 (0-50); Lipase 127 U/L (23-300); Potassium 4.1 mmol/L (3.4-5.1); Sodium 136 mmol/L (137-145); Total Protein 7.9 g/dL (6.3-8.2)
[2022-09-30 16:16] LABS: Troponin I < 0.012 ng/mL (0.01-0.034)
[2022-09-30 16:36] LABS: D Dimer 986 ng/ml (<500)
[2022-09-30] MEDS: ASPIRIN 81 MG CHEW TAB 324 MG PO (17:00)
--- NOTE | 2022-09-30 17:06 | ED_ITS ---
HPI - Chest Pain <DO Tea Fajardo Last Filed: 10/01/22 20:02> General Chief Complaint: Chest Pain Stated Complaint: Chest pain Time Seen by Provider: 09/30/22 15:50 Source: patient and family Mode of arrival: Ambulatory History of Present Illness HPI narrative: 72-year-old female nonsmoker presents with intermittent chest pain over the past few days seems to worsen with activity and improves with rest. She last had pain just prior to her arrival. She is been having episodes with exertion over the past few days that are brief and resolve with rest. She denies associated symptoms such as dizziness, weakness or lightheadedness. She denies any trauma or injury. She denies fever or chills. She denies nausea, vomiting or diarrhea. She denies recent travel, lower extremity pain or swelling nor histor y of blood clot. Her doctors had ordered her a stress test in May which she was unable to complete because of chest pain that came with the test. She is had no further workup Related Data Home Medications Medication Instructions Recorded Confirmed docusate sodium 100 mg capsule 100 mg PO DAILY 09/30/22 09/30/22 (Stool Softener) metformin 500 mg tablet,extended 500 mg PO 3XD 09/30/22 09/30/22 release 24 hr Allergies Allergy/AdvReac Type Severity Reaction Status Date / Time No Known Drug Allergies Allergy Verified 09/30/22 15:30 Review of Systems <DO Tea Fajardo Last Filed: 10/01/22 20:02> Review of Systems Narrative: GENERAL: Denies chills, fatigue, malaise, fever, sweats. HEENT: Denies sinus pain, ear pain, sore throat, difficulty swallowing, di zziness. RESPIRATORY: Denies dyspnea, cough, wheezing, hemoptysis, sputum. CARDIOVASCULAR: See HPI GASTROINTESTINAL: Denies nausea, vomiting, abdominal pain, diarrhea, constipation, melena. : Denies dysuria, frequency, incontinence, hematuria, urinary retention. MUSCULOSKELETAL: denies weakness, joint pain, or bony pain SKIN: Denies rash, skin lesions, or other NEUROLOGIC: Denies weakness, headache, numbness, change in speech, confusion, seizures, incoordination. PSYCHIATRIC: No concerning psychosocial issues. 12 point review of systems is negative except for those stated above Patient History <DO Tea Fajardo Last Filed: 10/01/22 20:02> Medical History Diabetes mellitus Social History Smoking Status: Never smoker Smoking Status: Never smoker alcohol intake frequency: 0-2 drinks per day Substance Use Type: does not use Exam <Robbie Forbes DO - Last Filed: 10/01/22 20:02> Narrative Exam Narrative: GENERAL: [72] year old patient appears stated age. Well-developed patient, in mild distress. HEAD: Atraumatic. Normocephalic. EYES: Pupils equal round and reactive. Extraocular motions intact. No scleral icterus. No injection or drainage. ENT: Nose without bleeding, purulent drainage. Throat without erythema, tonsi llar hypertrophy or exudate. Airway patent. NECK: Trachea midline. Non tender CARDIOVASCULAR: Regular rate and rhythm without murmurs, gallops, or rubs. RESPIRATORY: Clear to auscultation. Breath sounds equal bilaterally. No wheezes, rales, or rhonchi. GASTROINTESTINAL: Abdomen soft, non-tender, nondistended. EXTREMITIES: No edema or joint tenderness. BACK: Nontender without deformity or crepitance. No flank tenderness. NEURO: AOx3. SKIN: No rash or erythema of visible areas Initial Vital Signs Initial Vital Signs: Vital Signs Temperature 97.7 F 09/30/22 15:30 Pulse Rate 82 09/30/22 15:30 Respiratory Rate 17 09/30/22 15:30 Blood Pressure 133/77 09/30/22 15:30 Pulse Oximetry 98 09/30/22 15:30 Oxygen Delivery Method Room Air 09/30/22 15:30 <Carole Shine DO - Last Filed: 10/01/22 06:55> Initial Vital Signs Initial Vital Signs: Vital Signs Temperature 97.7 F 09/30/22 15:30 Pulse Rate 82 09/30/22 15:30 Respiratory Rate 17 09/30/22 15:30 Blood Pressure 133/77 09/30/22 15:30 Pulse Oximetry 98 09/30/22 15:30 Oxygen Delivery Method Room Air 09/30/22 15:30 Scores <Rbobie Forbes DO - Last Filed: 10/01/22 20:02> HEART Score Heart Score history: Highly Suspicious Heart Score EKG: Non-Specific repolarization disturbance Heart Score Age: > or = 65 years old Heart Score risk factors: 1-2 risk factors Heart Score troponin: < or = to normal limit Heart Score Total: 6 <Carole Shine DO - Last Filed: 10/01/22 06:55> HEART Score Heart Score Total: 6 Course <Robbie Fobres DO - Last Filed: 10/01/22 20:02> Orders Ordered: Discontinued Medications Aspirin (Aspirin 81 Mg Chew Tab) 324 mg PO NOW ONE Stop: 09/30/22 15:38 Last Admin: 09/30/22 17:00 Dose: 324 mg Documented By: JOSEPH Atorvastatin Calcium (Atorvastatin 20 Mg Tablet) 40 mg PO NOW ONE Stop: 09/30/22 18:26 Last Admin: 09/30/22 18:31 Dose: 40 mg Documented By: JOSEPH Heparin Sodium (Porcine) (Heparin 5,000 Unit/Ml Vial) 4,000 unit IV NOW ONE Stop: 10/01/22 02:18 Last Admin: 10/01/22 02:37 Dose: 4,000 unit Documented By: RENO Heparin Sodium/Dextrose (Heparin Drip) 25,000 unit in 500 mls @ 10.342 mls/hr IV CONT JUAN; Protocol Last Admin: 10/01/22 02:36 Dose: 12 units/kg/hr, 10.342 mls/hr Documented By: RENO Co-signed By: Vital Signs Vital signs: Vital Signs - 8 hr 09/30/22 23:00 09/30/22 23:00 09/30/22 23:30 Pulse Rate 71 Respiratory Rate 16 Blood Pressure 174/79 H 179/88 H Pulse Oximetry 98 Oxygen Delivery Method 09/30/22 23:30 10/01/22 00:00 10/01/22 00:00 Pulse Rate 71 71 Respiratory Rate 17 19 Blood Pressure 183/86 H Pulse Oximetry 98 98 Oxygen Delivery Method Room Air 10/01/22 00:30 10/01/22 00:30 10/01/22 01:00 Pulse Rate 57 L Respiratory Rate 15 Blood Pressure 146/72 H 150/75 H Pulse Oximetry 97 Oxygen Delivery Method 10/01/22 01:00 10/01/22 01:30 10/01/22 01:30 Pulse Rate 61 69 Respiratory Rate 13 14 Blood Pressure 180/83 H Pulse Oximetry 98 97 Oxygen Delivery Method Room Air 10/01/22 02:00 10/01/22 02:00 10/01/22 02:30 Pulse Rate 69 Respiratory Rate 15 Blood Pressure 163/80 H 158/83 H Pulse Oximetry 97 Oxygen Delivery Method 10/01/22 02:30 10/01/22 03:00 10/01/22 03:00 Pulse Rate 74 60 Respiratory Rate 14 16 Blood Pressure 149/77 H Pulse Oximetry 97 98 Oxygen Delivery Method Room Air 10/01/22 03:30 10/01/22 03:30 10/01/22 04:00 Pulse Rate 62 Respiratory Rate 16 Blood Pressure 121/59 L 152/68 H Pulse Oximetry 97 Oxygen Delivery Method 10/01/22 04:00 10/01/22 04:30 10/01/22 04:30 Pulse Rate 65 64 Respiratory Rate 17 16 Blood Pressure 170/78 H Pulse Oximetry 96 96 Oxygen Delivery Method 10/01/22 05:00 10/01/22 05:00 10/01/22 05:30 Pulse Rate 61 70 Respiratory Rate 16 17 Blood Pressure 119/62 Pulse Oximetry 97 99 Oxygen Delivery Method 10/01/22 05:32 10/01/22 05:32 10/01/22 06:00 Pulse Rate 71 Respiratory Rate 18 Blood Pressure 151/93 H 156/77 H Pulse Oximetry 99 Oxygen Delivery Method 10/01/22 06:00 10/01/22 06:30 10/01/22 06:30 Pulse Rate 61 63 Respiratory Rate 18 22 Blood Pressure 160/78 H Pulse Oximetry 97 98 Oxygen Delivery Method <Carole Shine DO - Last Filed: 10/01/22 06:55> Orders Ordered: Discontinued Medications Aspirin (Aspirin 81 Mg Chew Tab) 324 mg PO NOW ONE Stop: 09/30/22 15:38 Last Admin: 09/30/22 17:00 Dose: 324 mg Documented By: JOSEPH Atorvastatin Calcium (Atorvastatin 20 Mg Tablet) 40 mg PO NOW ONE Stop: 09/30/22 18:26 Last Admin: 09/30/22 18:31 Dose: 40 mg Documented By: MPO Heparin Sodium (Porcine) (Heparin 5,000 Unit/Ml Vial) 4,000 unit IV NOW ONE Stop: 10/01/22 02:18 Last Admin: 10/01/22 02:37 Dose: 4,000 unit Documented By: SB Heparin Sodium/Dextrose (Heparin Drip) 25,000 unit in 500 mls @ 10.342 mls/hr IV CONT JUAN; Protocol Last Admin: 10/01/22 02:36 Dose: 12 units/kg/hr, 10.342 mls/hr Documented By: RENO Co-signed By: Vital Signs Vital signs: Vital Signs - 8 hr 09/30/22 23:00 09/30/22 23:00 09/30/22 23:30 Pulse Rate 71 Respiratory Rate 16 Blood Pressure 174/79 H 179/88 H Pulse Oximetry 98 Oxygen Delivery Method 09/30/22 23:30 10/01/22 00:00 10/01/22 00:00 Pulse Rate 71 71 Respiratory Rate 17 19 Blood Pressure 183/86 H Pulse Oximetry 98 98 Oxygen Delivery Method Room Air 10/01/22 00:30 10/01/22 00:30 10/01/22 01:00 Pulse Rate 57 L Respiratory Rate 15 Blood Pressure 146/72 H 150/75 H Pulse Oximetry 97 Oxygen Delivery Method 10/01/22 01:00 10/01/22 01:30 10/01/22 01:30 Pulse Rate 61 69 Respiratory Rate 13 14 Blood Pressure 180/83 H Pulse Oximetry 98 97 Oxygen Delivery Method Room Air 10/01/22 02:00 10/01/22 02:00 10/01/22 02:30 Pulse Rate 69 Respiratory Rate 15 Blood Pressure 163/80 H 158/83 H Pulse Oximetry 97 Oxygen Delivery Method 10/01/22 02:30 10/01/22 03:00 10/01/22 03:00 Pulse Rate 74 60 Respiratory Rate 14 16 Blood Pressure 149/77 H Pulse Oximetry 97 98 Oxygen Delivery Method Room Air 10/01/22 03:30 10/01/22 03:30 10/01/22 04:00 Pulse Rate 62 Respiratory Rate 16 Blood Pressure 121/59 L 152/68 H Pulse Oximetry 97 Oxygen Delivery Method 10/01/22 04:00 10/01/22 04:30 10/01/22 04:30 Pulse Rate 65 64 Respiratory Rate 17 16 Blood Pressure 170/78 H Pulse Oximetry 96 96 Oxygen Delivery Method 10/01/22 05:00 10/01/22 05:00 10/01/22 05:30 Pulse Rate 61 70 Respiratory Rate 16 17 Blood Pressure 119/62 Pulse Oximetry 97 99 Oxygen Delivery Method 10/01/22 05:32 10/01/22 05:32 10/01/22 06:00 Pulse Rate 71 Respiratory Rate 18 Blood Pressure 151/93 H 156/77 H Pulse Oximetry 99 Oxygen Delivery Method 10/01/22 06:00 10/01/22 06:30 10/01/22 06:30 Pulse Rate 61 63 Respiratory Rate 18 22 Blood Pressure 160/78 H Pulse Oximetry 97 98 Oxygen Delivery Method MDM - Chest Pain <Robbie Forbes DO - Last Filed: 10/01/22 20:02> Lab Data 09/30/22 15:45 09/30/22 15:45 Labs: Lab Results 09/30/22 09/30/22 09/30/22 Range/Units 15:45 15:45 15:45 WBC 6.1 (4.5-11.0) X10^3/uL RBC 4.71 (4.0-5.2) X10^6/uL Hgb 14.4 (12.0-16.0) g/dL Hct 42.8 (36-46) % MCV 90.9 (80-100) fL MCH 30.6 (26-34) PG MCHC 33.7 (30-36) % RDW 13.4 (11.6-14.8) % Plt Count 166 (150-400) X10^3/uL Neut % (Auto) 61.0 (50-75) % Lymph % (Auto) 26.9 (25-40) % Benzie % (Auto) 8.0 (3-14) % Eos % (Auto) 3.3 (2-4) % Baso % (Auto) 0.8 (0-2) % Neut # (Auto) 3700 (1007-9891) /uL Lymph # (Auto) 1600 (7748-8387) /uL Benzie # (Auto) 500 (0-900) /uL Eos # (Auto) 200 (0-450) /uL Baso # (Auto) 0 (0-100) /uL PT 10.4 (10.1-12.7) SECONDS INR 0.9 (0.9-1.3) APTT 30 (26-36) SECONDS D-Dimer (<500) ng/ml Sodium 136 L (137-145) mmol/L Potassium 4.1 (3.4-5.1) mmol/L Chloride 102 (98-107) mmol/L Carbon Dioxide 25 (22-32) mmol/L BUN 18 H (7-17) mg/dL Creatinine 0.43 L (0.52-1.04) mg/dL Estimated GFR > 60 (>60) mL/min BUN/Creatinine Ratio 41.9 H (6-22) Glucose 259 H (80-110) mg/dL Calcium 9.1 (8.4-10.2) mg/dL Magnesium 2.0 (1.6-2.3) mg/dL Total Bilirubin 0.3 (0.2-1.3) mg/dL AST 29 (14-36) IU/L ALT 17 (<35) IU/L Alkaline Phosphatase 56 (38-126) U/L Total Creatine Kinase 89 (30-135) U/L Troponin I < 0.012 (0.01-0.034) ng/mL Total Protein 7.9 (6.3-8.2) g/dL Albumin 4.5 (3.5-5.0) g/dL Globulin 3.4 (1.7-4.1) g/dL Albumin/Globulin Ratio 1.3 (1.0-2.8) Lipase 127 (23-300) U/L 09/30/22 09/30/22 10/01/22 Range/Units 15:45 18:35 02:27 WBC (4.5-11.0) X10^3/uL RBC (4.0-5.2) X10^6/uL Hgb (12.0-16.0) g/dL Hct (36-46) % MCV (80-100) fL MCH (26-34) PG MCHC (30-36) % RDW (11.6-14.8) % Plt Count (150-400) X10^3/uL Neut % (Auto) (50-75) % Lymph % (Auto) (25-40) % Benzie % (Auto) (3-14) % Eos % (Auto) (2-4) % Baso % (Auto) (0-2) % Neut # (Auto) (1781-8701) /uL Lymph # (Auto) (8307-9525) /uL Benzie # (Auto) (0-900) /uL Eos # (Auto) (0-450) /uL Baso # (Auto) (0-100) /uL PT (10.1-12.7) SECONDS INR (0.9-1.3) APTT (26-36) SECONDS D-Dimer 986 H (<500) ng/ml Sodium (137-145) mmol/L Potassium (3.4-5.1) mmol/L Chloride (98-107) mmol/L Carbon Dioxide (22-32) mmol/L BUN (7-17) mg/dL Creatinine (0.52-1.04) mg/dL Estimated GFR (>60) mL/min BUN/Creatinine Ratio (6-22) Glucose (80-110) mg/dL Calcium (8.4-10.2) mg/dL Magnesium (1.6-2.3) mg/dL Total Bilirubin (0.2-1.3) mg/dL AST (14-36) IU/L ALT (<35) IU/L Alkaline Phosphatase (38-126) U/L Total Creatine Kinase 74 (30-135) U/L Troponin I < 0.012 < 0.012 (0.01-0.034) ng/mL Total Protein (6.3-8.2) g/dL Albumin (3.5-5.0) g/dL Globulin (1.7-4.1) g/dL Albumin/Globulin Ratio (1.0-2.8) Lipase (23-300) U/L MDM Narrative Medical decision making narrative: CC: 72-year-old female with exertional chest pain over the past few days Complicating co-morbidities: Age, prior chest pain, questionable stress test a few months ago Data collected from: Patient Medical records reviewed: Prior notes reviewed in our EMR Differential considered, but not limited to: Cardiac ischemia versus pulmonary embolism versus other Exam documented above, pertinent findings include: Heart rate regular, lungs clear, abdomen soft Lab Test results independently reviewed as above. Pertinent findings: Independently reviewed EKG as above Imaging studies independently reviewed: CTA demonstrates no PE Scores Used: HEART score 6 Consultations: call to cardiology technology applications teacher at [facility] ([place]). we have discussed the patient's clinical course and she sure the opinion that given her unstable angina she is most appropriate for transfer to [facility] Treatments: aspirin, atorvastatin Re-evaluations: patient remains pain-free 1828 - chart notes, face sheet and other requests documents faxed to [facility] for likely transfer. Patient and understand and agree with diagnosis and plan <Carole Shine DO - Last Filed: 10/01/22 06:55> Lab Data Labs: Lab Results 09/30/22 09/30/22 09/30/22 Range/Units 15:45 15:45 15:45 WBC 6.1 (4.5-11.0) X10^3/uL RBC 4.71 (4.0-5.2) X10^6/uL Hgb 14.4 (12.0-16.0) g/dL Hct 42.8 (36-46) % MCV 90.9 (80-100) fL MCH 30.6 (26-34) PG MCHC 33.7 (30-36) % RDW 13.4 (11.6-14.8) % Plt Count 166 (150-400) X10^3/uL Neut % (Auto) 61.0 (50-75) % Lymph % (Auto) 26.9 (25-40) % Benzie % (Auto) 8.0 (3-14) % Eos % (Auto) 3.3 (2-4) % Baso % (Auto) 0.8 (0-2) % Neut # (Auto) 3700 (8469-5184) /uL Lymph # (Auto) 1600 (3659-9135) /uL Benzie # (Auto) 500 (0-900) /uL Eos # (Auto) 200 (0-450) /uL Baso # (Auto) 0 (0-100) /uL PT 10.4 (10.1-12.7) SECONDS INR 0.9 (0.9-1.3) APTT 30 (26-36) SECONDS D-Dimer (<500) ng/ml Sodium 136 L (137-145) mmol/L Potassium 4.1 (3.4-5.1) mmol/L Chloride 102 (98-107) mmol/L Carbon Dioxide 25 (22-32) mmol/L BUN 18 H (7-17) mg/dL Creatinine 0.43 L (0.52-1.04) mg/dL Estimated GFR > 60 (>60) mL/min BUN/Creatinine Ratio 41.9 H (6-22) Glucose 259 H (80-110) mg/dL Calcium 9.1 (8.4-10.2) mg/dL Magnesium 2.0 (1.6-2.3) mg/dL Total Bilirubin 0.3 (0.2-1.3) mg/dL AST 29 (14-36) IU/L ALT 17 (<35) IU/L Alkaline Phosphatase 56 (38-126) U/L Total Creatine Kinase 89 (30-135) U/L Troponin I < 0.012 (0.01-0.034) ng/mL Total Protein 7.9 (6.3-8.2) g/dL Albumin 4.5 (3.5-5.0) g/dL Globulin 3.4 (1.7-4.1) g/dL Albumin/Globulin Ratio 1.3 (1.0-2.8) Lipase 127 (23-300) U/L 09/30/22 09/30/22 10/01/22 Range/Units 15:45 18:35 02:27 WBC (4.5-11.0) X10^3/uL RBC (4.0-5.2) X10^6/uL Hgb (12.0-16.0) g/dL Hct (36-46) % MCV (80-100) fL MCH (26-34) PG MCHC (30-36) % RDW (11.6-14.8) % Plt Count (150-400) X10^3/uL Neut % (Auto) (50-75) % Lymph % (Auto) (25-40) % Benzie % (Auto) (3-14) % Eos % (Auto) (2-4) % Baso % (Auto) (0-2) % Neut # (Auto) (4538-4802) /uL Lymph # (Auto) (1759-6419) /uL Benzie # (Auto) (0-900) /uL Eos # (Auto) (0-450) /uL Baso # (Auto) (0-100) /uL PT (10.1-12.7) SECONDS INR (0.9-1.3) APTT (26-36) SECONDS D-Dimer 986 H (<500) ng/ml Sodium (137-145) mmol/L Potassium (3.4-5.1) mmol/L Chloride (98-107) mmol/L Carbon Dioxide (22-32) mmol/L BUN (7-17) mg/dL Creatinine (0.52-1.04) mg/dL Estimated GFR (>60) mL/min BUN/Creatinine Ratio (6-22) Glucose (80-110) mg/dL Calcium (8.4-10.2) mg/dL Magnesium (1.6-2.3) mg/dL Total Bilirubin (0.2-1.3) mg/dL AST (14-36) IU/L ALT (<35) IU/L Alkaline Phosphatase (38-126) U/L Total Creatine Kinase 74 (30-135) U/L Troponin I < 0.012 < 0.012 (0.01-0.034) ng/mL Total Protein (6.3-8.2) g/dL Albumin (3.5-5.0) g/dL Globulin (1.7-4.1) g/dL Albumin/Globulin Ratio (1.0-2.8) Lipase (23-300) U/L MDM Narrative Medical decision making narrative: CC: 72-year-old female with exertional chest pain over the past few days Complicating co-morbidities: Age, prior chest pain, questionable stress test a few months ago Data collected from: Patient Medical records reviewed: Prior notes reviewed in our EMR Differential considered, but not limited to: Cardiac ischemia versus pulmonary embolism versus other Exam documented above, pertinent findings include: Heart rate regular, lungs clear, abdomen soft Lab Test results independently reviewed as above. Pertinent findings: Independently reviewed EKG as above Imaging studies independently reviewed: CTA demonstrates no PE Scores Used: HEART score 6 Consultations: call to cardiology technology applications teacher at [facility] ([place]). we have discussed the patient's clinical course and she sure the opinion that given her unstable angina she is most appropriate for transfer to [facility] Treatments: aspirin, atorvastatin Re-evaluations: patient remains pain-free 1827 - chart notes, face sheet and other requests documents faxed to [facility] for likely transfer. Patient and understand and agree with diagnosis and plan Patient signed out to myself. Dr. Rosa, hospitalist at [facility] accepts for transfer for unstable angina. He was reviewing Dr. Samaniego note and does ask heparin gtt, asks for 3rd troponin to be sent, defers repeat EKG. Patient continues to be asymptomatic in the department. 3rd troponin is negative. Patient transfer at 0630am today. Patient updated and aware of plan. Continues to be asymptomatic in department. Critical Care Time <Robbie Andrei DO - Last Filed: 10/01/22 20:02> Critical Care Time Attestation: The high probability of a clinically significant, sudden or life threatening deterioration of the [cardiac, pulm] system(s) required my full and direct attention, intervention and personal management. The aggregate critical care ti me was [35] minutes. This time is in addition to time spent performing reported procedures but includes the following: [x] Data Review and interpretation [x] Patient assessment and monitoring of vital signs [x] Documentation [x] Medication orders and management <Carole Shine, DO - Last Filed: 10/01/22 06:55> Critical Care Time Critical Care Time: Yes Total Critical Care Time: 35 Attestation: The high probability of a clinically significant, sudden or life threatening deterioration of the [cardiac, pulm] system(s) required my full and direct attention, intervention and personal management. The aggregate critical care time was [] minutes. This time is in addition to time spent performing reported procedures but includes the following: [x] Data Review and interpretation [x] Patient assessment and monitoring of vital signs [x] Documentation [x] Medication orders and management Discharge Plan Departure Patient Disposition: [facility] Clinical Impression: Unstable angina pectoris Prescriptions: No Action metformin 500 mg tablet extended release 24 hr 500 mg PO 3XD docusate sodium [Stool Softener] 100 mg capsule 100 mg PO DAILY Referrals: Niyah Stewart MD [Primary Care Provider] -
--- NOTE | 2022-09-30 17:17 | DI.CT.S_ITS ---
PROCEDURE: CT ANGIO CHEST PE PROTOCOL INDICATIONS: chest pain, critical Dimer TECHNIQUE: After the administration of intravenous contrast, 2 mm thick sections acquired from the pulmonary apices to the posterior costophrenic angles. 3-dimensional maximum intensity projection (MIP) coronal and sagittal reformats were then acquired through the thorax. For radiation dose reduction, the following was used: automated exposure control, adjustment of mA and/or kV according to patient size. COMPARISON: None. FINDINGS: Image quality: Excellent. Pulmonary arteries: Pulmonary arteries are normal in size, and demonstrate no intraluminal filling defects to suggest central pulmonary embolism. Lungs and pleura: Lungs are clear. No pleural effusions or pneumothorax. Central and peripheral airways are patent. Mediastinum: Heart size is normal, without pericardial effusion. Severe coronary artery calcifications. No mediastinal or hilar adenopathy. Thoracic aorta is normal in caliber and enhancement. Esophagus is normal in caliber, without hiatal hernia. Bones and chest wall: No suspicious bony lesions. Ribs and thoracic spine appear intact throughout. Thyroid gland is unremarkable as visualized. No axillary or supraclavicular adenopathy. Abdomen: Visualized upper abdominal solid organs appear normal in the early arterial phase of enhancement. IMPRESSION: 1. No acute pulmonary emboli. 2. No acute pulmonary process. 3. Severe coronary artery calcifications. Dictated by: Yusuf Meneses M.D. on 09/30/2022 at 17:39 Approved by: Yusuf Meneses M.D. on 09/30/2022 at 17:41
[2022-09-30] MEDS: ATORVASTATIN 20 MG TABLET 40 MG PO (18:31)
--- NOTE | 2022-09-30 19:08 | PC.NURSE ---
Pt up to [facility] and stated that she felt dizzy and lightheaded.
[2022-09-30 19:10] LABS: Creatine Kinase 74 U/L (30-135)
[2022-09-30 19:22] LABS: Troponin I < 0.012 ng/mL (0.01-0.034)
[2022-10-01] VITALS (15 sets, daily range): BP systolic 119–183; BP diastolic 59–93; PULSE 57–74; RESP 13–22; O2SAT 96–99
[2022-10-01] MEDS: HEPARIN DRIP 25,000 UNIT/500 ML IV.SOLN 10.342 UNIT IV (02:36)
[2022-10-01] MEDS: HEPARIN 5,000 UNIT/ML VIAL 4000 UNIT IV (02:37)
[2022-10-01 02:56] LABS: Troponin I < 0.012 ng/mL (0.01-0.034)
--- NOTE | 2022-10-01 06:53 | PC.NURSE ---
0639: Attempted report to [facility] at 0639, no answer. 0653: Report called to ALVIN Mckenna on [facility] who will relay report to receiving RN. All questions answered. Patient left via [facility] at approximately 0640.
--- NOTE | 2022-10-24 12:13 | PC.NURSE ---
late entry- patient was transported to another hospital with IV Heparin drip infusing per RN
== END 2022-10-01 06:56 | disposition short-term general hospital (02) ==
PROVIDERS: Emergency Medicine; Emergency Provider Emergency Medicine; PCP Internal Medicine
DX: I20.0 Unstable angina (principal)
CPT/HCPCS: 36415; 71045; 71275; 80053; 82550; 83690; 83735; 84484; 85025; 85379; 85610; 85730; 93005; 96365; 96366; 96375; 99285; 99291; J1644

== ENCOUNTER 2023-04-12 10:15 | Outpatient (RCR) | payer MEDICARE, OTHER, SELFPAY ==
--- OUTSIDE RECORDS SUMMARY | 2023-02-02 09:00 | XMS_ITS | Referral Summary ---
Author Name Unknown Organization [facility] Address [address] [place] [address] Care Team Providers Care Improvement Engineer Name Role Phone Pasquale Forbes Primary Care Provider [phone] Reason for Referral * - Authorized Specialty Diagnoses / Procedures Referred By Nila gutierrez Referred To Contact Cardiac Rehabilitation Diagnoses Coronary artery disease involving [place] coronary artery of [place] heart without angina pectoris NSTEMI (non-ST elevated myocardial infarction) ([facility]) Tri Torre MD [address] [place] [address] [address] Referral ID Status Reason Start Date Expiration Date V isits Requested Visits Authorized [id number] Authorized 01/02/2023 12/28/2023 1 1 Encounter Details Date Type Department Care Team Description 01/02/2023 Telephone [facility] [address], [address] [place] [address] Boo Petit PA [address] [place] [address] [address] [place] [address] Allergies Active Allergy Reactions Criticality Noted Date Comments Cat Hair Standardized Allergenic Extract Other (see comments) Low 10/03/2022 Sneeze, runny nose Grass Pollen Other (see comments) Low 10/03/2022 Sneeze, runny nose documented as of this encounter (statuses as of 01/02/2023) Medications Medication Sig Dispensed Refills Start Date End Date Status metFORMIN (GLUCOPHAGE) 500 mg tablet Take 1 tablet (500 mg total) by mouth daily with breakfast 0 Active aspirin 81 mg EC tablet Take 1 tablet (81 mg total) by mouth daily 0 Active losartan (COZAAR) 50 mg tablet Take 1 tablet (50 mg total) by mouth 2 (two) times a day 0 10/05/2022 Active Trulicity 0.75 mg/0.5 mL pen injector 0.75 mg by abdominal subcutaneous route every 7 days 0 10/18/2022 Active nitroglycerin (NITROSTAT) 0.[address] 1 tablet (0.4 mg total) under the tongue every 5 (five) minutes as needed for chest pain . You can take every 5 min, max three times; if you need to take the second tablet, then call 911. 25 tablet 2 10/31/2022 Active famotidine (PEPCID) 20 mg tablet Take 1 tablet (20 mg total) by mouth 2 (two) times a day 180 tablet 3 10/31/2022 10/31/2023 Active carvediloL (COREG) 6.25 mg tablet Take 1 tablet (6.25 mg total) by mouth 2 (two) times a day with meals 180 tablet 3 10/31/2022 10/31/2023 Active atorvastatin (LIPITOR) 80 mg tablet Take 1 tablet (80 mg total) by mouth nightly 90 tablet 3 10/31/2022 10/31/2023 Active spironolactone (ALDACTONE) 25 mg tablet Take 1 tablet (25 mg total) by mouth every morning 90 tablet 3 10/31/2022 10/31/2023 Active clopidogreL (PLAVIX) 75 mg tablet Take 1 tablet (75 mg total) by mouth every morning 90 tablet 3 10/31/2022 10/31/2023 Active polyethylene glycol (GLYCOLAX) 17 gram/dose powder 0 11/16/2022 Active freestyle 28 gauge lancets 0 11/16/2022 Active FreeStyle Lite Strips strip 0 11/16/2022 Active amLODIPine (NORVASC) 5 mg tablet Take 1 tablet (5 mg total) by mouth 2 (two) times a day 0 Active multivitamin (THERAGRAN) tablet tablet Take 1 tablet by mouth daily 0 Active co-enzyme Q-10 30 mg capsule Take 1 capsule (30 mg total) by mouth 3 (three) times a day 0 Active traZODone (DESYREL) 50 mg tabletIndications :Primary insomnia Take 1 tablet half an hour prior to bedtime as needed for sleep 30 tablet 0 11/29/2022 Active documented as of this encounter (statuses as of 01/02/2023) Active Problems Problem Noted Date Diagnosed Date Chronic constipation 11/29/2022 Last Assessment & Plan: Discussed seeing GI so that you can get your internal hemorrhoids evaluated first and then addressing the constipation. Continue to eat high fiber foods. Insomnia 11/29/2022 Last Assessment & Plan: History of insomnia - tried Melatonin and Ambien. Sleep hygiene discussed. Will trial Trazodone this month. Directions on use discussed and adverse effects discussed. Follow-up in 1 month to re-assess Diabetes 11/28/2022 Last Assessment & Plan: Currently on Metformin and Trulicity.States she recently had an A1C done but unable to recall the value. Asymptomatic. Emphasized importance of diet control and activity levels. S/P drug eluting coronary stent placement 2022 Last Assessment & Plan: Discussed importance of diet, activity level and taking her medications such as Plavix, BP medications and Diabetes medications as prescribed. Under care of cardiology RBBB 10/31/2022 Coronary artery disease invo lving g[place] coronary artery of [place] heart without angina pectoris 10/31/2022 Essential hypertension 10/31/2022 Last Assessment & Plan: Hypertension is stable today. Continue taking Amlodipine, Carvedilol and Losartan daily as directed. Asymptomatic. Keep salt intake down and exercise. Mixed hyperlipidemia 10/31/2022 Constipation 10/04/2018 Altered bowel habits 10/04/2018 documented as of this encounter (statuses as of 01/02/2023) Immunizations Name Administration Dates Next Due DTaP, Unspecified 03/07/1995 TD Preservative Free (Generic) 03/07/1995 documented as of this encounter Social History Tobacco Use Types Packs/Day Years Used Date Smoking Tobacco: Never Smokeless Tobacco: Never Alcohol Use Standard Drinks/Week Comments Not Currently 0 (1 standard drink = 0.6 oz pur e alcohol) Humiliation, Afraid, Rape, and Kick questionnair e Answer Date Recorded Within the last year, have y ou been afraid of your partner or ex-partner? No 10/01/2022 Within the last year, have y ou been humiliated or emotionally abused in other ways by your partner or ex-partner? No Within the last year, have y ou been kicked, hit, slapped, or otherwise physically hurt by your partner or ex-partner? No 10/01/2022 Within the last year, have y ou been raped or forced to have any kind of sexual activity by your partner or ex-partner? No 10/01/2022 Overall Financial Resource Strain (CARDIA) Answe r Date Recorded How hard is it for you to pa y for the very basics like food, housing, medical care, and heating? Not hard at all 10/01/2022 PHQ-2 Answer Date Recorded PHQ-2 Score 0 Hunger Vital Sign Answer Date Recorded Within the past 12 months, y ou worried that your food would run out before you got the money to buy more. Never true 10/02/19 23 Within the past 12 months, t he food you bought just didn't last and you didn't have money to get more. Never true 10/01/2022 PRAPARE - Transportation Answer Date Re corded In the past 12 months, has l ack of transportation kept you from medical appointments or from getting medications? No 09/04 In the past 12 months, has l ack of transportation kept you from meetings, work, or from getting things needed for daily living? No 10/01/2022 Housing Stability Vital Sign Answer Erich e Recorded In the last 12 months, was t here a time when you were not able to pay the mortgage or rent on time? No 10/01/2022 In the last 12 months, how many places have you lived? 1 10/01/2022 In the last 12 months, was t here a time when you did not have a steady place to sleep or slept in a skilled nursing (including now)? No 10/01/2022 Sex and Gender Information Value Date Recorded Sex Assigned at Not on file Gender Identity Not on file Sexual Orientation Not on file Job Start Date Occupation Industry Not on file Not on file Not on file documented as of this encounter Miscellaneous Notes * Addendum Note - Tri Torre MD - 01/02/2023 2:02 PM PDTAddended by: TRI TORRE on: 01/02/2023 02:02 PM Modules accepted: Orders * Telephone Encounter - David Lozano MA - 01/02/2023 11:18 AM PDT Please see previous message. Looks like Dr. Torre consulted pt in the hospital & Cardiac rehab is requesting order be sent in by * Telephone Encounter - Elisa No - 01/02/2023 10:24 AM PDT Received call from [facility]. They received the Cardiac Rehab request but, the order is signed by the ISAURO Petit. Unfortunately, because the patient has Medicare as insurance the order has to be signed by a Doctor. I can refax the order to [phone] if you let me know that it's signed by the MD. documented in this encounter Plan of Treatment Upcoming Encounters Date Type Department Care Team Description 01/16/2023 1:00 PM PST Office Visit [facility] [place] [id number] [phone] Pasquale Forbes DO [address] [phone] 01/31/2023 10:40 AM PST Office Visit [facility] [address] [place] [address] Boo Petit PA [address] [place] [address] 02/14/2023 2:20 PM PST Office Visit [facility] [place] [address] [place] [address] Gus Prabhakar MD [address], [place] [id number] Scheduled Referrals Name Type Priority Associated Diagnoses Order Schedule Ambulatory Referral to Cardiac Rehabilitation Outpatient Referral Routine Coronary artery disease involving [place] coronary artery of [place] heart without angina pectoris NSTEMI (non-ST elevated myocardial infarction) ([facility]) Ordered: 01/02/2023 documented as of this encounter Visit Diagnoses Diagnosis Coronary artery disease involving [place] coronary artery of [place] heart without angina pectoris- Primary NSTEMI (non-ST elevated myocardial infarction) ([facility]) Acute myocardial infarction, subendocardial infarction, episode of care unspecified documented in this encounter Insurance Payer Benefit Plan / Group Subscriber ID Effective Dates Phone Address Type MEDICARE MEDICARE PART A AND B [id number] 2014-Sara t [address] [place] [address] SUPP FOR LIFE SUPP [id number] 2018-en t [address] [place] [address] documented as of this encounter Advance Directives Latest Code Status on File Code Status Date Activated Date Inactivated Comments Full Code 10/02/2022 11:42 AM 10/03/2022 12:15 PM Code Status History Code Status Date Activated Date Inactivated Comments Full Code 10/02/2022 9:21 AM 10/02/2022 11:42 AM Full Code 10/02/2022 9:21 AM 10/02/2022 9:21 AM Full Code 10/01/2022 9:12 AM 10/02/2022 9:21 AM Full Code 11/19/2018 11:29 AM 11/19/2018 3:51 PM Care Teams Improvement Engineer Relationship Specialty Start Date End Date Pasquale Forbes DO [address] [place] [id number] PCP - General Family Medicine 11/29/22 documented as of this encounter
== END 2023-04-12 12:15 ==
LOC: CAR 10:15
PROVIDERS: PCP Family Medicine; Referring Provider Internal Medicine Cardiovascular Disease; Visit Provider Internal Medicine Cardiovascular Disease
DX: I25.10 Atherosclerotic heart disease of native coronary artery without angina pectoris (principal); I21.4 Non-ST elevation (NSTEMI) myocardial infarction
CPT/HCPCS: 93798